=== PATIENT | male | born 1970 | race Caucasian/White ===

== ENCOUNTER 2018-08-10 20:16 | Observation (INO) ==
[2018-08-10] MEDS ORDERED: Aspirin 81 MG TAB.CHEW PO ONE (20:17)
[2018-08-10] MEDS ORDERED: Nitroglycerin Spray 4.9 GM BOTTLE TL ONE (20:21)
--- NOTE | 2018-08-10 20:24 | Emergency Department Note ---
Disposition Clinical Impression: Chest pain Disposition: Admitted As Inpatient Condition: Good Referrals: Cristian Tolbert DO [Primary Care Provider] - Forms: ED Satisfaction Letter Time of Disposition: 21:14 ( will admit ) Chest Pain HPI - General Chief Complaint: ED Chest Pain Stated Complaint: chest pain Time Seen by Provider: 08/10/18 20:22 Source: patient Mode of arrival: ambulatory Limitations: no limitations Vital Signs Reviewed: Yes Nursing Notes Reviewed: Yes - History of Present Illness HPI Narrative: This 47-year-old male who presents to the emergency department today with a 24- hour history of dizziness, and 2 hour history of chest pain. Patient reports that he is having some left arm numbness or tingling. He has history of low heart rates and also hyperlipidemia and states that he has a history of gilberto betes. He also has history of acid reflux, but reports that the pain in his chest is different than his acid reflux symptoms. Patient reports approximately 3 or 4 pain out of 10. He does not appear to be in any kind of distress. Patient reports that he was basically laying in bed when he began having this chest pain. He denies any strenuous activity. Pt complaint: chest pain Onset (ago): hour(s) (2) Duration: intermittent Onset: during rest Pain Location: substernal Severity: mild Severity scale (1-10): 3 Quality: tightness Improves with: nothing Worsens with: nothing Treatments prior to arrival chest pain: none - Related Data On Oral Contraceptives: No Home Medications Medication Instructions Recorded Confirmed Aspirin [Lo-Dose Aspirin EC] 81 mg PO DAILY 11/12/17 08/10/18 Insulin Glargine,Hum.rec.anlog 30 unit SQ HS 11/12/17 08/10/18 [Basaglar Kwikpen U-100] Insulin LISPRO [Humalog Kwikpen 15 units SQ TID 11/12/17 08/10/18 U-100] Lisinopril [Zestril] 5 mg PO DAILY 11/12/17 08/10/18 Metoprolol [Lopressor] 25 mg PO BID 11/12/17 08/10/18 Omeprazole [PriLOSEC] 40 mg PO DAILY 11/12/17 08/10/18 Pioglitazone HCl [Actos] 30 mg PO DAILY 11/12/17 08/10/18 Pravastatin Sodium 10 mg PO DAILY 11/12/17 08/10/18 traZODone [TraZODone] 50 mg PO DAILY 11/21/17 08/10/18 Allergies Allergy/AdvReac Type Severity Reaction Status Date / Time penicillin G Allergy See Verified 08/10/18 20:23 Comments hydrocodone AdvReac Rash Verified 08/10/18 20:23 Constitutional: Denies: fever, chills, weakness, weight change Eyes: Denies: eye pain, eye discharge, vision change ENT ED: Denies: ear pain, throat pain, dental pain, hearing loss, epistaxis, congestion, dysphagia Cardiovascular: Denies: chest pain, palpitations, dyspnea on exertion, edema, syncope Respiratory: Denies: cough, dyspnea, wheezes, hemoptysis, stridor Gastrointestinal: Denies: abdominal pain, nausea, vomiting, diarrhea, constipation, hematemesis, melena, hematochezia Genitourinary: Denies: urgency, dysuria, frequency, hematuria Musculoskeletal: Denies: back pain, neck pain, arthralgia, myalgia Integumentary: Denies: rash, abrasion, lesions Neurological: Denies: headache, weakness, numbness, paresthesias, confusion, abnormal gait, vertigo Psychiatric: Denies: anxiety, depression, suicidal thoughts, homicidal thoughts, auditory hallucinations, visual hallucinations Endocrine: Denies: fatigue Hematological/Lymphatic: Denies: easy bleeding, easy bruising Allergic/Immunologic: Denies: facial swelling, urticaria Chest Pain PMH - Past Medical History Medical history: Reports: diabetes, GERD Psychiatric history: Reports: no psych history - Social History Smoking Status: Never smoker Alcohol use: Reports: none Drug use: Reports: none Physical Exam - General Limitations: no limitations General appearance: alert, in no apparent distress - Head Head exam: atraumatic, normocephalic, normal inspection - Eye Eye exam: Present: normal appearance, PERRL, EOMI - Expanded Eye Exam Pupils: Left: reactive - ENT ENT exam: normal exam, normal oropharynx, mucous membranes moist - Expanded ENT Exam External ear exam: Present: normal external inspection Mouth exam: Present: normal external inspection Teeth exam: Present: normal inspection Throat exam: Present: normal inspection - Neck Neck exam: Present: normal inspection, full ROM, trachea midline - Chest Chest inspection: Present: normal inspection, symmetric chest wall rise - Respiratory Respiratory exam: Present: normal lung sounds bilaterally - Cardiovascular Cardiovascular exam: Present: regular rate, normal rhythm, normal heart sounds - Abdominal Exam Abdominal exam: Present: soft, Non-Tender. Absent: tenderness, distention, guarding, rebound, rigidity - Extremities Exam Extremities exam: Present: normal inspection, full ROM. Absent: tenderness, pedal edema - Expanded Upper Extremity Exam Shoulder exam: Present: normal inspection, full ROM Arm exam: Present: normal inspection, full ROM Elbow exam: Present: normal inspection, full ROM Forearm/Wrist exam: Present: normal inspection, full ROM Hand exam: Present: normal inspection, full ROM Vascular exam: Normal: capillary refill, radial pulse - Expanded Lower Extremity Exam Hip/Pelvis exam: Present: normal inspection, full ROM Upper leg exam: Present: normal inspection, full ROM Knee exam: Present: normal inspection, full ROM Lower leg exam: Present: normal inspection, full ROM Ankle exam: Present: normal inspection, full ROM Foot/toe exam: Present: normal inspection, full ROM Neurovascular/Tendon exam: Absent: motor deficit, sensory deficit, tendon deficit - Back Exam Back exam: Present: normal inspection, full ROM. Absent: tenderness - Neurological Exam Neurological exam: Present: alert, oriented X3 - Expanded Neurological Exam Patient oriented to: Present: person, place, time Coma Scale Eye Opening: Spontaneous Coma Scale Motor Response: Obeys Commands Coma Scale Verbal Response: Oriented Coma Scale Total: 15 - Psychiatric Psychiatric exam: Present: normal affect, normal mood - Skin Skin exam: Present: warm, dry, intact, normal color Course Vital Signs Temperature 98.2 F 08/10/18 20:17 Pulse Rate 87 08/10/18 20:17 Respiratory Rate 20 08/10/18 20:17 Blood Pressure 125/77 08/10/18 20:17 O2 Sat by Pulse Oximetry 99 08/10/18 20:17 Temperature 98.2 F 08/10/18 20:17 Pulse Rate 102 08/10/18 20:56 Respiratory Rate 17 08/10/18 20:56 Blood Pressure 84/63 08/10/18 20:56 O2 Sat by Pulse Oximetry 95 08/10/18 20:56 Oxygen Delivery Oxygen Delivery Room Air Chest Pain - MDM Narrative Medical decision making narrative: Labs are obtained including CBC chemistry troponin. Patient was given aspirin, and one sublingual nitroglycerin which helped relieve his chest pain however it also dropped the patient's blood pressure and as a result of 1 L bolus of normal saline was administered labs are within normal limits EKG normal sinus rhythm and chest x-ray shows no acute abnormality. - Differential Diagnosis Likely: stable angina, unstable angina pectoris, st elevation myocardial infraction, chest pain - Lab Data Lab results reviewed: Yes I reviewed the patient's lab results. Result diagrams: 08/10/18 20:37 08/10/18 20:37 Lab Results 08/10/18 08/10/18 08/10/18 Range/Units 20:37 20:37 20:37 WBC (4.3-11.1) K/mcL RBC (4.19-5.50) M/mcL Hgb (12.9-16.9) g/dL Hct (37.5-50.1) % MCV (83.0-100.0) fL MCH (28.0-33.3) pg MCHC (31.6-35.5) g/dL RDW (11.5-14.5) % Plt Count (140-400) K/mcL MPV (9.4-12.4) fL Immature Gran % (0-4) % Seg Neutrophils % % Lymphocytes % % Monocytes % % Eosinophils % % Basophils % % Neutrophils # (1.6-8.9) K/mcL Lymphocytes # (0.6-4.6) K/mcL Monocytes # (0.0-1.3) K/mcL Eosinophils # (0.0-0.6) K/mcL Basophils # (0.0-0.2) K/mcL PT 11.7 (9.4-12.1) Seconds INR 1.0 APTT 31.4 (26.0-36.0) Seconds Sodium (136-145) mEq/L Potassium (3.5-5.1) mEq/L Chloride (98-107) mEq/L Carbon Dioxide (23-29) mEq/L BUN (6-20) mg/dL Creatinine (0.70-1.30) mg/dL Est GFR ( Amer) (> 60) Est GFR (Non-Af Amer) (> 60) BUN/Creatinine Ratio (6-26) Glucose (70-105) mg/dL Calculated Osmolality (280-300) Calcium (8.6-10.3) mg/dL Total Bilirubin 0.6 (0.3-1.0) mg/dL Direct Bilirubin 0.1 (0.0-0.2) mg/dL Indirect Bilirubin 0.5 (0.0-1.2) mg/dL AST 14 (13-39) Units/L ALT 20 (7-52) Units/L Alkaline Phosphatase 102 (34-104) Units/L Troponin I (< 0.04) ng/mL B-Natriuretic Peptide 11 (Less than 100) pg/mL Serum Total Protein 7.6 (6.4-8.9) g/dL Albumin 4.0 (3.5-5.7) g/dL Globulin 3.6 H (2.4-3.5) g/dL Albumin/Globulin Ratio 1.1 (1.1-2.2) Amylase 28 L (29-103) Units/L Lipase (11-82) Units/L 08/10/18 08/10/18 08/10/18 Range/Units 20:37 20:37 20:37 WBC 8.7 (4.3-11.1) K/mcL RBC 5.15 (4.19-5.50) M/mcL Hgb 16.1 (12.9-16.9) g/dL Hct 46.0 (37.5-50.1) % MCV 89.3 (83.0-100.0) fL MCH 31.3 (28.0-33.3) pg MCHC 35.0 (31.6-35.5) g/dL RDW 12.0 (11.5-14.5) % Plt Count 243 (140-400) K/mcL MPV 11.1 (9.4-12.4) fL Immature Gran % 0.3 (0-4) % Seg Neutrophils % 71.3 % Lymphocytes % 18.1 % Monocytes % 8.1 % Eosinophils % 1.5 % Basophils % 0.7 % Neutrophils # 6.2 (1.6-8.9) K/mcL Lymphocytes # 1.6 (0.6-4.6) K/mcL Monocytes # 0.7 (0.0-1.3) K/mcL Eosinophils # 0.1 (0.0-0.6) K/mcL Basophils # 0.1 (0.0-0.2) K/mcL PT (9.4-12.1) Seconds INR APTT (26.0-36.0) Seconds Sodium 133 L (136-145) mEq/L Potassium 4.1 (3.5-5.1) mEq/L Chloride 98 (98-107) mEq/L Carbon Dioxide 26 (23-29) mEq/L BUN 18 (6-20) mg/dL Creatinine 1.06 (0.70-1.30) mg/dL Est GFR ( Amer) > 60 (> 60) Est GFR (Non-Af Amer) > 60 (> 60) BUN/Creatinine Ratio 17 (6-26) Glucose 295 H (70-105) mg/dL Calculated Osmolality 289 (280-300) Calcium 9.4 (8.6-10.3) mg/dL Total Bilirubin (0.3-1.0) mg/dL Direct Bilirubin (0.0-0.2) mg/dL Indirect Bilirubin (0.0-1.2) mg/dL AST (13-39) Units/L ALT (7-52) Units/L Alkaline Phosphatase (34-104) Units/L Troponin I < 0.03 (< 0.04) ng/mL B-Natriuretic Peptide (Less than 100) pg/mL Serum Total Protein (6.4-8.9) g/dL Albumin (3.5-5.7) g/dL Globulin (2.4-3.5) g/dL Albumin/Globulin Ratio (1.1-2.2) Amylase (29-103) Units/L Lipase 21 (11-82) Units/L - Radiology Data Radiology results reviewed: Yes I reviewed the patient's radiology results. - EKG Data EKG attestation: Yes I reviewed and interpreted this EKG. EKG results narrative: EKG is normal sinus rhythm rate of 86 no evidence of ischemia. EKG shows normal: sinus rhythm Rate: normal Rhythm: NSR Jeffrey/QRS: normal
[2018-08-10] MEDS ORDERED: Nitroglycerin 0.4 MG TAB.SUBL SL PRN (20:33)
[2018-08-10 20:47] LABS: Basophils # 0.1 K/mcL (0.0-0.2); Basophils % 0.7 %; Eosinophils # 0.1 K/mcL (0.0-0.6); Eosinophils % 1.5 %; Hemoglobin 16.1 g/dL (12.9-16.9); Immature Granulocytes % 0.3 % (0-4); Lymphocytes # 1.6 K/mcL (0.6-4.6); Lymphocytes % 18.1 %; Mean Corpuscular Hemoglobin 31.3 pg (28.0-33.3); Mean Corpuscular Volume 89.3 fL (83.0-100.0); Mean Platelet Volume 11.1 fL (9.4-12.4); Monocytes # 0.7 K/mcL (0.0-1.3); Monocytes % 8.1 %; Neutrophils # 6.2 K/mcL (1.6-8.9); Platelet Count 243 K/mcL (140-400); Red Blood Count 5.15 M/mcL (4.19-5.50); Segmented Neutrophils % 71.3 %; White Blood Count 8.7 K/mcL (4.3-11.1)
[2018-08-10 20:55] LABS: Prothrombin Time 11.7 Seconds (9.4-12.1)
[2018-08-10 20:58] LABS: Activated Partial Thrombo Time 31.4 Seconds (26.0-36.0)
[2018-08-10] MEDS ORDERED: 0.9 % Sodium Chloride 1,000 ML IVC ONE (20:58)
[2018-08-10 21:07] LABS: BUN/Creatinine Ratio 17 (6-26); Blood Urea Nitrogen 18 mg/dL (6-20); Calcium 9.4 mg/dL (8.6-10.3); Carbon Dioxide 26 mEq/L (23-29); Chloride 98 mEq/L (98-107); Glucose 295 mg/dL (70-105); Osmolality,Calculated 289 (280-300); Potassium 4.1 mEq/L (3.5-5.1); Sodium 133 mEq/L (136-145); Troponin I < 0.03 ng/mL (< 0.04); eGFR For African Americans > 60 (> 60); eGFR For Non-African Americans > 60 (> 60)
[2018-08-10 21:08] LABS: Albumin/Globulin Ratio 1.1 (1.1-2.2); Bilirubin,Direct 0.1 mg/dL (0.0-0.2); Bilirubin,Indirect 0.5 mg/dL (0.0-1.2); Bilirubin,Total 0.6 mg/dL (0.3-1.0); Globulin 3.6 g/dL (2.4-3.5); Total Protein 7.6 g/dL (6.4-8.9)
[2018-08-10] MEDS ORDERED: Naloxone 0.4 MG/ML INJ IVP PRN (21:11)
[2018-08-11] MEDS ORDERED: Naloxone 0.4 MG/ML INJ IVP PRN (00:23)
[2018-08-11] MEDS ORDERED: Nitroglycerin 0.4 MG TAB.SUBL SL PRN (00:23)
[2018-08-11] MEDS: Insulin LISPRO 300 UNITS/3 ML VIAL SQ SCH ×2 (08:57→16:27)
[2018-08-11] MEDS ORDERED: *HR* Pioglitazone 15 MG TABLET PO SCH (09:00)
[2018-08-11] MEDS ORDERED: traZODone 50 MG TABLET PO SCH (09:00)
[2018-08-11] MEDS ORDERED: Aspirin Enteric Coated 81 MG Tablet PO SCH (09:00)
--- NOTE | 2018-08-11 12:08 | Internal Med History&Physical ---
Date of Encounter: 08/11/18 Time of Encounter: 11:35 Assessment and Plan (1) Chest pain Current visit: Yes Status: Acute Doubt myocardial ischemia from history and physical. Repeat cardiac enzymes and d-dimer will be ordered. Qualifiers: Chest pain type: unspecified Qualified Code(s): R07.9 - Chest pain, unspecified (2) Hypertension Current visit: Yes Status: Chronic Continue lisinopril and Lopressor. Qualifiers: Hypertension type: essential hypertension Qualified Code(s): I10 - Essential (primary) hypertension Internal Medicine - H&P: HPI Chief complaint: Chest discomfort, lightheaded Admitted From: Emergency Dept Plans for Post Hospital Care: Home History of present illness: Mr. Betancur is a 47 year old male who came to emergency room stating he had onset of non-vertigo lightheadedness while at leisure evening of August 09. He took usual nighttime medications with no improvement. He was able to go to sleep but when he awakened the following morning the lightheadedness was still present. He states around noon August 10 he developed some discomfort in his chest that came on fairly rapidly. He describes as a pressure sensation in his left chest that radiated down his left arm. There was no dyspnea or diaphoresis. When the discomfort did not resolve after a few hours he came to emergency room. He was evaluated and admitted to [facility]. He states his symptoms have resolved at the present time. He denies previous similar chest pain. He does not get angina or anginal equivalents on exertion. He has history of hypertension but denies MA heart failure angina DVT or pulmonary embolus. Past Med Surg Social Fam HX - Past Medical History Medical history: diabetes, GERD, hyperlipidemia, kidney stones Additional medical history: kidney stones Psychiatric history: no psych history - Social History Smoking Status: Former smoker Smokeless Tobacco Status: Yes Alcohol use: none Drug use: none Internal Medicine - H&P: Meds Aspirin [Lo-Dose Aspirin EC] 81 mg PO DAILY 11/12/17 [History] Insulin Glargine,Hum.rec.anlog [Basaglar Kwikpen U-100] 30 unit SQ HS 11/12/17 [History] Insulin LISPRO [Humalog Kwikpen U-100] 15 units SQ TID 11/12/17 [History] Lisinopril [Zestril] 5 mg PO DAILY 11/12/17 [History] Metoprolol [Lopressor] 25 mg PO BID 11/12/17 [History] Omeprazole [PriLOSEC] 40 mg PO DAILY 11/12/17 [History] Pioglitazone HCl [Actos] 30 mg PO DAILY 11/12/17 [History] Pravastatin Sodium 10 mg PO DAILY 11/12/17 [History] traZODone [TraZODone] 50 mg PO DAILY 11/21/17 [History] Allergy/AdvReac Type Severity Reaction Status Date / Time penicillin G Allergy See Verified 08/10/18 20:23 Comments hydrocodone AdvReac Rash Verified 08/10/18 20:23 All Systems PM: A 10-system review of systems was performed and is negative for pertinent findings except as documented above in the HPI. Review of systems: Gen.: He states his weight has been stable for several months Cardiovascular: As per history of present illness Respiratory: He smoked briefly in young adulthood but denies chronic lung disease and does not use home oxygen GI: He has GERD. He denies disorders of his liver gallbladder or exocrine pancreas : He has had kidney stones remotely without recurrence. 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 He denies other kidney bladder prostate disorders. Neurologic: He denies large distribution strokes or seizures. Endocrine: He was diagnosed with DM 2 approximately 2010. He has hyperlipidemia but denies thyroid disease. Hematology/oncology: He denies blood disorders cancers or anemia Psychiatric: He has had feelings of depression recently since his girlfriend broke up with him. He denies other mental health diagnosis. [place] skeletal: He denies arthritis gout or other bone joint or muscle disorders. - Constitutional Vitals: Temp Pulse Resp BP Pulse Ox 98.0 F 84 16 96/60 93 08/11/18 11:09 08/11/18 11:09 08/11/18 11:09 08/11/18 11:09 08/11/18 11:09 Exam: Gen.: He is a well-developed well-nourished male resting comfortably in bed who appears in no acute distress HEENT: Head is atraumatic and normocephalic. Eyes: EOMI. There is no scleral icterus. Mouth: Mucosa is moist. Neck: Supple and nontender. There is no thyromegaly or adenopathy noted. Heart: Regular without murmurs gallops or ectopics Chest: He has slight tenderness in his left chest wall but states "that is not the pain" on compression. Abdomen: Soft and nontender. No masses or guarding are noted. Extremities: There is no cyanosis edema or clubbing noted. Dorsalis pedis and posterior tibial pulses are 1-2 over 2 bilaterally. Neurologic: Mental status: He is talkative and a good historian. Cranial nerves: Smile is symmetric. Forehead wrinkles bilaterally. Tongue protrudes midline. EOMI. Motor: There is no pronator drift. Cerebellar: Finger to nose is intact bilaterally. Skin: Warm and dry Internal Med - H&P Results - Labs CBC & Chem 7: 08/10/18 20:37 08/10/18 20:37 Labs: Short CBC 08/10/18 Range/Units 20:37 WBC 8.7 (4.3-11.1) K/mcL Hgb 16.1 (12.9-16.9) g/dL Hct 46.0 (37.5-50.1) % Plt Count 243 (140-400) K/mcL Neutrophils # 6.2 (1.6-8.9) K/mcL BMP 08/10/18 20:37 Sodium 133 L Potassium 4.1 Chloride 98 Carbon Dioxide 26 BUN 18 Creatinine 1.06 Glucose 295 H Calcium 9.4 Cardiac Enzymes 08/10/18 Range/Units 20:37 Troponin I < 0.03 (< 0.04) ng/mL Liver Function 08/10/18 Range/Units 20:37 Total Bilirubin 0.6 (0.3-1.0) mg/dL Direct Bilirubin 0.1 (0.0-0.2) mg/dL AST 14 (13-39) Units/L ALT 20 (7-52) Units/L Alkaline Phosphatase 102 (34-104) Units/L Albumin 4.0 (3.5-5.7) g/dL - Impressions ITS Impressions Chest X-Ray 08/10/18 20:17 IMPRESSION: No acute process. D/ / Hang Yepez MD / Hang Yepez MD Interpreting Provider: Hang Yepez MD
[2018-08-11 14:05] VITALS: BP 104/69
[2018-08-11] MEDS ORDERED: Isovue-370 500 ML BOTTLE IVP ONE (14:14)
--- NOTE | 2018-08-11 14:43 | Electrocardiograph Report ---
[place] [id number] Test Date: 2018-08-10 Pat Name: Benji Betancur Department: EDP-16 Room: [facility] Gender: M [employer] Service Technician: : 1970 Requested By: Afia Amaya Order Number: [id number] Reading MD: Erick Ruiz Measurements Intervals [place] Rate: 86 P: -11 WV: 189 QRS: -19 QRSD: 82 T: 25 QT: 343 QTc: 411 Interpretive Statements Sinus rhythm Borderline left axis deviation Low voltage, precordial leads Poor R wave progression Electronically Signed On 08-11-2018 14:41:22 EDT by Erick Ruiz
--- NOTE | 2018-08-11 16:26 | Discharge Summary ---
Orders not resulted at time of discharge: Pending orders 08/11/18 14:14 CTA chest [CT angio chest] [CT] Routine Date of Encounter: 08/11/18 Time of Encounter: 16:27 - Discharge Diagnosis (1) Chest pain Priority: Primary Status: Resolved Qualifiers: Chest pain type: unspecified Qualified Code(s): R07.9 - Chest pain, unspecified (2) Hypertension Priority: Secondary Status: Chronic Qualifiers: Hypertension type: essential hypertension Qualified Code(s): I10 - Essential (primary) hypertension Hospital course: Mr. Betancur is a 47 year old male who came to emergency room stating he had onset of non-vertigo lightheadedness while at leisure evening of August 09. He took usual nighttime medications with no improvement. He was able to go to sleep but when he awakened the following morning the lightheadedness was still present. He states around noon August 10 he developed some discomfort in his chest that came on fairly rapidly. He describes as a pressure sensation in his left chest that radiated down his left arm. There was no dyspnea or diaphoresis. When the discomfort did not resolve after a few hours he came to emergency room. He was evaluated and admitted to [facility]. Initial orders were written by the emergency room physician. I saw him on August 11 and performed a history and physical. Repeat cardiac enzymes show no evidence of myocardial damage. When I saw him I did not think pain was likely of myocardial ischemic origin. He remained pain-free during his hospital stay. D-dimer returned slightly elevated at 591. Chest CTA was done and showed no evidence of pulmonary embolism. The etiology of the pain was not determined with certainty. The afternoon of August 11 he felt stable for discharge home. He will follow with his PCP Dr. Tolbert within 1 week. - Time Spent with Patient Total time spent providing and/or coordinating discharge services: - Discharge Medications Prescriptions: Continued Insulin LISPRO [Humalog Kwikpen U-100] 15 units SQ TID Insulin Glargine,Hum.rec.anlog [Basaglar Kwikpen U-100] 30 unit SQ HS Pioglitazone HCl [Actos] 30 mg PO DAILY Omeprazole [PriLOSEC] 40 mg PO DAILY Metoprolol [Lopressor] 25 mg PO BID Aspirin [Lo-Dose Aspirin EC] 81 mg PO DAILY Pravastatin Sodium 10 mg PO DAILY traZODone [TraZODone] 50 mg PO DAILY Discontinued Lisinopril [Zestril] 5 mg PO DAILY Home Medications: Aspirin [Lo-Dose Aspirin EC] 81 mg PO DAILY 11/12/17 [History] Insulin Glargine,Hum.rec.anlog [Basaglar Kwikpen U-100] 30 unit SQ HS 11/12/17 [History] Insulin LISPRO [Humalog Kwikpen U-100] 15 units SQ TID 11/12/17 [History] Metoprolol [Lopressor] 25 mg PO BID 11/12/17 [History] Omeprazole [PriLOSEC] 40 mg PO DAILY 11/12/17 [History] Pioglitazone HCl [Actos] 30 mg PO DAILY 11/12/17 [History] Pravastatin Sodium 10 mg PO DAILY 11/12/17 [History] traZODone [TraZODone] 50 mg PO DAILY 11/21/17 [History] Allergies/Adverse Reactions: Allergy/AdvReac Type Severity Reaction Status Date / Time penicillin G Allergy See Verified 08/10/18 20:23 Comments hydrocodone AdvReac Rash Verified 08/10/18 20:23 Date of admission: 08/10/18 23:20 Primary care physician: Cristian Tolbert DO - Constitutional Vitals: Temp Pulse Resp BP Pulse Ox 98.4 F 84 20 104/69 94 08/11/18 14:03 08/11/18 14:03 08/11/18 14:03 08/11/18 14:03 08/11/18 14:03 - Patient Status Disposition: Home, Self-Care Condition: Good - Discharge Instructions Follow Up With: Cristian Tolbert DO [Primary Care Provider] - 1 week - Diet and Activity Activity: resume usual activities as tolerated Diet: advance to your usual diet
[2018-08-11] MEDS ORDERED: Insulin DETEMIR 100 UNIT/ML X5UNITS SQ SCH (21:00)
== END 2018-08-11 17:44 | disposition home or self-care (01) ==
LOC: INPPIK 20:16 → EMEROOPIK 20:16 → INPPIK 08-11
PROVIDERS: ADMIT Internal Medicine; ATTEND Internal Medicine